=== PATIENT | female | born 1980 | race Caucasian/White ===

== ENCOUNTER 2017-01-02 08:12 | Inpatient (IN) | payer OTHER ==
[~2017-01-02] VITALS: Ht 167.6 cm; Wt 85.5 kg
[2017-01-02] VITALS (50 sets, daily range): BP systolic 94–141; BP diastolic 52–81; PULSE 60–109; TEMP 97.8–98.8
[~2017-01-02 08:12] MED LIST: MOTRIN 600600 MG/TAB PO; PRENATAL1 TA1 PO; SENOKOT S 50 MG1 TAB PO
[2017-01-02 09:30] LABS: BASO # 0.1 (0.0-0.2); BASO % 0.5 % (0.0-2.0); EOS # 0.1 (0.0-0.7); EOS % 0.7 % (0-4.0); GRAN # 7.5 (1.4-6.5); GRAN % 70.5 % (42.2-75.2); HEMATOCRIT 37.9 % (37.0-47.0); HEMOGLOBIN 12.6 g/dl (12.5-16.0); LYMPH # 2.1 (1.2-3.4); LYMPH % 19.2 % (20.0-51.0); MEAN CELL VOLUME 82 fl (80.0-100.0); MEAN CORPUSCULAR HEMOGLOBIN 27 pg (27.0-31.0); MEAN CORPUSCULAR HGB CONC 33 g/dl (33.0-37.0); MONO # 0.9 (0.1-0.6); MONO % 8.5 % (1.7-9.3); PLATELET COUNT 278 K/mm3 (130-400); RED BLOOD COUNT 4.61 M/mm3 (4.10-5.30); REDCELL DISTRIBUTION WIDTH-CV 13.3 % (11.5-14.5); WHITE BLOOD COUNT 10.7 K/mm3 (4.8-10.8)
[2017-01-03 05:00] VITALS: BP 119/69; PULSE 69; TEMP 97.7
[2017-01-03 07:40] VITALS: BP 120/85; PULSE 68; TEMP 97.8
[2017-01-03 17:08] VITALS: BP 118/72; PULSE 72; TEMP 97.8
[2017-01-03 20:15] VITALS: BP 131/74; PULSE 68; TEMP 98.3
[2017-01-04 07:30] VITALS: BP 128/76; PULSE 73; TEMP 98.4
[2017-01-04] MEDS ORDERED: MOTRIN 600600 MG/TAB PO (08:57)
[2017-01-04] MEDS ORDERED: PERCOCET 325 MG1 TA2 PO (08:58)
[2017-01-04 09:28] VITALS: BP 116/73; PULSE 77; TEMP 98.3
== END 2017-01-04 12:50 | disposition home or self-care (01) | DRG 775 ==
LOC: LDRO 08:12 → OB 08:55 → LDR 08:55 → OB 21:30 → LDRO 01-20 13:22
PROVIDERS: Obstetrics & Gynecology
PROC: 10E0XZZ Delivery of Products of Conception, External Approach (ICD-10-PCS; principal; 2017-01-02)
PROC: 0KQM0ZZ Repair Perineum Muscle, Open Approach (ICD-10-PCS; 2017-01-02)
DX: O70.1 Second degree perineal laceration during delivery (principal); Z37.0 Single live birth; Z3A.39 39 weeks gestation of pregnancy
CPT/HCPCS: J2590; J2795; J7120

== ENCOUNTER → 2023-06-22 | Outpatient (CLI) | payer OTHER ==
[~2023-06-22] MED LIST changes: +PERCOCET 325 MG1 TA2 PO
== END ==
LOC: MC.RAD 09:06
DX: Z12.31 Encounter for screening mammogram for malignant neoplasm of breast (principal)